=== PATIENT | female | born 1975 | race Caucasian/White ===

== ENCOUNTER 2017-05-10 14:40 | Observation (INO) | payer OTHER ==
[~2017-05-10] VITALS: Ht 165.1 cm; Wt 71.1 kg
[~2017-05-10 14:40] MED LIST: PROM25TA10 PO
[2017-05-10 15:00] VITALS: BP 113/70; PULSE 95; RESP 18; TEMP 97.4; O2SAT 99
[2017-05-10] MEDS ORDERED: ZOFR8TAB PO (15:19)
[2017-05-10] MEDS ORDERED: PANCCAP3 PO (15:20)
[2017-05-10] MEDS ORDERED: HYDR-755 PO (15:23)
[2017-05-10] MEDS ORDERED: MIRT45TA PO (15:24)
[2017-05-10] MEDS ORDERED: NEXI40CA PO (15:24)
[2017-05-10] MEDS ORDERED: ALBUAER3 INH (15:25)
[2017-05-10] MEDS ORDERED: SYMB80AE INH (15:26)
[2017-05-10] MEDS: MORPHINE SULFATE 2 MG/ML INJ IV PRN ×2 (18:23→23:35)
[2017-05-10] MEDS ORDERED: ALBUTEROL SULFATE 90 MCG/ACT HFA 8 GM INHALER INH PRN (19:00)
[2017-05-10] MEDS ORDERED: SODIUM CHLORIDE 0.9% FLUSH 10 ML FLUSH IV FLUSH PRN (19:00)
[2017-05-10] MEDS ORDERED: PROMETHAZINE HCL 25 MG TAB PO PRN (19:00)
[2017-05-10] MEDS: ONDANSETRON HCL 4 MG/2 ML VIAL IV PUSH PRN (20:14)
[2017-05-10] MEDS: LACTATED RINGER'S 1000 ML INJ 1,000 ML IV SCH (20:23)
[2017-05-10] MEDS: SODIUM CHLORIDE 0.9% FLUSH 10 ML FLUSH IV FLUSH SCH (20:26)
[2017-05-10] MEDS: CIPROFLOXACIN 400 MG PREMIX 200 ML IV SCH (20:26)
[2017-05-10] MEDS: metroNIDAZOLE 500 MG TAB PO SCH (20:29)
[2017-05-10] MEDS: BUDESONIDE-FORMOTEROL 80/4.5 MCG INHALER INH SCH (20:32)
[2017-05-10] MEDS: HEPARIN SODIUM - SQ 10,000 UNITS/ML VIAL SQ SCH (20:32)
[2017-05-10] MEDS ORDERED: MIRTAZAPINE 15 MG TAB PO SCH (21:00)
[2017-05-10] MEDS ORDERED: HYDROmorphone HCL PF 1 MG/ML VIAL IV PUSH ONE (21:00)
[2017-05-10 21:13] VITALS: BP 154/94; PULSE 84; RESP 20; TEMP 96.9; O2SAT 98
[2017-05-11 01:00] VITALS: BP 111/75; PULSE 85; RESP 16; TEMP 97.2; O2SAT 96
[2017-05-11] MEDS: MORPHINE SULFATE 2 MG/ML INJ IV PRN ×2 (04:09→08:37)
[2017-05-11] MEDS: ONDANSETRON HCL 4 MG/2 ML VIAL IV PUSH PRN ×2 (04:10→08:36)
[2017-05-11] MEDS: metroNIDAZOLE 500 MG TAB PO SCH (05:33)
[2017-05-11] MEDS: LACTATED RINGER'S 1000 ML INJ 1,000 ML IV SCH (05:33)
[2017-05-11] MEDS: HEPARIN SODIUM - SQ 10,000 UNITS/ML VIAL SQ SCH (05:33)
[2017-05-11 07:41] LABS: CHLORIDE 106 MEQ/L (98-107); SODIUM (NA) 139 MEQ/L (136-145)
[2017-05-11 07:45] LABS: ALBUMIN 3.1 GM/DL (3.4-5.0); BICARBONATE 25.5 MEQ/L (21.0-32.0); BLOOD UREA NITROGEN 13 MG/DL (7-18); GLUCOSE,RANDOM 86 MG/DL (74-106)
[2017-05-11 07:48] LABS: ALT (GPT) 13 U/L (10-53); AST (GOT) 15 U/L (15-37); CREATININE 0.61 MG/DL (0.50-1.00); GLOMERULAR FILTRATION RATE 109 ML/MIN (>89)
[2017-05-11 07:50] LABS: TOTAL BILIRUBIN ADULT 0.7 MG/DL (0.2-1.0); TOTAL PROTEIN 6.4 GM/DL (6.4-8.2)
[2017-05-11 07:51] LABS: ALKALINE PHOSPHATASE 53 U/L (45-117)
[2017-05-11 08:00] VITALS: BP 113/76; PULSE 80; RESP 18; TEMP 98.3; O2SAT 95
[2017-05-11 08:22] LABS: AUTOMATED NEUTROPHIL # 3.8 TH/MM3 (1.8-7.7); BASOPHIL # 0.1 TH/MM3 (0-0.2); BASOPHIL % 0.7 % (0.0-2.0); EOSINOPHIL # 0.1 TH/MM3 (0-0.4); EOSINOPHIL % 1.5 % (0.0-4.0); HEMATOCRIT 37.3 % (35.0-46.0); HEMOGLOBIN 12.1 GM/DL (11.6-15.3); LYMPH % 40.5 % (9.0-44.0); LYMPHOCYTE # 3.1 TH/MM3 (1.0-4.8); MEAN CELL VOLUME 88.1 FL (80.0-100.0); MEAN CORPUSCULAR HEMOGLOBIN 28.7 PG (27.0-34.0); MEAN CORPUSCULAR HGB CONC 32.6 % (32.0-36.0); MEAN PLATELET VOLUME 8.3 FL (7.0-11.0); MONO % 7.5 % (0.0-8.0); MONOCYTE # 0.6 TH/MM3 (0-0.9); NEUT % 49.8 % (16.0-70.0); PLATELET COUNT 314 TH/MM3 (150-450); RED BLOOD COUNT 4.23 MIL/MM3 (4.00-5.30); RED CELL DISTRIBUTION WIDTH 13.7 % (11.6-17.2); WHITE BLOOD COUNT 7.7 TH/MM3 (4.0-11.0)
[2017-05-11] MEDS: CIPROFLOXACIN 400 MG PREMIX 200 ML IV SCH (08:35)
[2017-05-11] MEDS: hydrOXYzine HCL 10 MG TAB PO SCH ×2 (08:37→13:00)
[2017-05-11] MEDS ORDERED: PANTOPRAZOLE SOD 40 MG DELAYED RELEASE TAB PO SCH (09:00)
[2017-05-11] MEDS: LIPASE/PROTEASE/AMYLASE (12,000/38,000/60,000) CAP PO SCH ×2 (09:30→13:10)
[2017-05-11] MEDS ORDERED: PNEUMOCOCCAL POLYVALENT INJ 25 MCG/0.5 ML SYR IM ONE (10:00)
[2017-05-11] MEDS ORDERED: INFLUENZA VIRUS VACCINE (QUADRIVALENT) 0.5 ML SYR IM ONE (10:00)
[2017-05-11] MEDS ORDERED: LORazepam 2 MG/ML VIAL IV PUSH ONE (10:30)
[2017-05-11] MEDS ORDERED: HYDROmorphone HCL PF 1 MG/ML VIAL IV PUSH ONE (10:30)
[2017-05-11] MEDS: BUDESONIDE-FORMOTEROL 80/4.5 MCG INHALER INH SCH (10:35)
[2017-05-11] MEDS: SODIUM CHLORIDE 0.9% FLUSH 10 ML FLUSH IV FLUSH SCH (10:38)
[2017-05-11 12:00] VITALS: BP 145/98; PULSE 79; RESP 18; TEMP 95.9; O2SAT 100
[2017-05-11] MEDS ORDERED: PROCHLORPERAZINE INJ 10 MG/2 ML VIAL IV PUSH ONE (12:45)
[2017-05-11] MEDS ORDERED: CIPR500T2 PO (13:00)
[2017-05-11] MEDS ORDERED: METR1TAB76 PO (13:00)
[2017-05-11] MEDS ORDERED: HYDR-3516 PO (13:00)
--- NOTE | 2017-05-11 13:00 | HHI.DCPOC ---
Discharge Care Plan Diagnosis: (1) Diverticulitis (2) Colitis Goals to Promote Your Health * To prevent worsening of your condition and complications * To maintain your health at the optimal level Directions to Meet Your Goals Take your medications as prescribed Follow your dietary instruction Follow activity as directed Keep your appointments as scheduled Take your immunizations and boosters as scheduled If your symptoms worsen call your PCP, if no PCP go to Urgent Care Center or Emergency Room Smoking is Dangerous to Your Health. Avoid second hand smoke Call the 24-hour hour crisis hotline for domestic abuse at Joyce Qiu MD May 11, 2017 13:00
--- NOTE | 2017-05-11 13:06 | HHI.HP ---
[facility] Sharon Bonner MD Admission Diagnosis Diagnoses: Chief Complaint: Abdominal pain Travel History International Travel<30 Days: No Contact w/Intl Traveler <30 Da: No Traveled to Known Affected Are: No History of Present Illness This is a 42-year-old female with a history of chronic pancreatitis. She presented with at least one day of lower abdominal pain which was severe and associated with nausea and vomiting and diarrhea. She thought it was pancreatitis but noted that the pain was quite severe. She came to the emergency room where she was found have leukocytosis. CT of abdomen pelvis that showed some colitis. Patient has not been febrile and was started on empiric antibiotics. Overnight her leukocytosis improved as well as her pain. She's been tolerating her diet and is suitable for discharge. Review of Systems Constitutional: DENIES: Diaphoretic episodes, Fatigue, Fever, Weight gain, Weight loss, Chills, Dizziness, Change in appetite, Night Sweats Endocrine: DENIES: Abnorml menstrual pattern, Heat/cold intolerance, Polydipsia , Polyuria, Polyphagia Eyes: DENIES: Blurred vision, Diplopia, Eye inflammation, Eye pain, Vision loss , Photosensitivity, Double Vision Ears, nose, mouth, throat: DENIES: Tinnitus, Hearing loss, Vertigo, Nasal discharge, Oral lesions, Throat pain, Hoarseness, Ear Pain, Running Nose, Epistaxis, Sinus Pain, Toothache, Odynophagia Respiratory: DENIES: Apneas, Cough, Snoring, Wheezing, Hemoptysis, Sputum production, Shortness of breath Cardiovascular: DENIES: Chest pain, Palpitations, Syncope, Dyspnea on Exertion , PND, Lower Extremity Edema, Orthopnea, Claudication Gastrointestinal: COMPLAINS OF: Abdominal pain, DENIES: Black stools, Bloody stools, Constipation, Diarrhea, Nausea, Vomiting, Difficulty Swallowing, Anorexia Genitourinary: DENIES: Abnormal vaginal bleeding, Dysmenorrhea, Dyspareunia, Sexual dysfunction, Urinary frequency, Urinary incontinence, Urgency, Hematuria , Dysuria, Nocturia, Vaginal discharge Except as stated in HPI: all other systems reviewed are Neg Past Family Social History Past Medical History Chronic pancreatitis COPD Anxiety disorder Past Surgical History Reviewed and patient denies Reported Medications Reviewed in the EMR Allergies: Coded Allergies: No Known Allergies (Verified Allergy, Unknown, 05/10/17) Active Ordered Medications Reviewed in the EMR Family History Hypertension Social History Quit alcohol (former alcoholic) Tobacco daily Divorcee Physical Exam Vital Signs Vital Signs Date Time Temp Pulse Resp B/P (MAP) Pulse Ox O2 Delivery O2 Flow Rate FiO2 05/11/17 12:00 95.9 79 18 145/98 (114) 100 05/11/17 08:42 20 05/11/17 08:00 98.3 80 18 113/76 (88) 95 05/11/17 01:00 97.2 85 16 111/75 (87) 96 05/10/17 21:13 96.9 84 20 154/94 (114) 98 05/10/17 15:00 97.4 95 18 113/70 (84) 99 Physical Exam GENERAL: This is a well-nourished, well-developed patient, hyperventilating and crying SKIN: No rashes, ecchymoses or lesions. Cool and dry. HEAD: Atraumatic. Normocephalic. No temporal or scalp tenderness. EYES: Pupils equal round and reactive. Extraocular motions intact. No scleral icterus. No injection or drainage. ENT: Nose without bleeding, purulent drainage or septal hematoma. Throat without erythema, tonsillar hypertrophy or exudate. Uvula midline. Airway patent. NECK: Trachea midline. No JVD or lymphadenopathy. Supple, nontender, no meningeal signs. CARDIOVASCULAR: Regular rate and rhythm without murmurs, gallops, or rubs. RESPIRATORY: Clear to auscultation. Breath sounds equal bilaterally. No wheezes , rales, or rhonchi. GASTROINTESTINAL: Abdomen soft, non-tender, nondistended. No hepato-splenomegaly , or palpable masses. No guarding. MUSCULOSKELETAL: Extremities without clubbing, cyanosis, or edema. No joint tenderness, effusion, or edema noted. No calf tenderness. Negative Homans sign bilaterally. NEUROLOGICAL: Awake and alert. Cranial nerves II through XII intact. Motor and sensory grossly within normal limits. Five out of 5 muscle strength in all muscle groups. Normal speech. Laboratory Laboratory Tests Test 05/11/17 06:55 White Blood Count 7.7 Red Blood Count 4.23 Hemoglobin 12.1 Hematocrit 37.3 Mean Corpuscular Volume 88.1 Mean Corpuscular Hemoglobin 28.7 Mean Corpuscular Hemoglobin Concent 32.6 Red Cell Distribution Width 13.7 Platelet Count 314 Mean Platelet Volume 8.3 Neutrophils (%) (Auto) 49.8 Lymphocytes (%) (Auto) 40.5 Monocytes (%) (Auto) 7.5 Eosinophils (%) (Auto) 1.5 Basophils (%) (Auto) 0.7 Neutrophils # (Auto) 3.8 Lymphocytes # (Auto) 3.1 Monocytes # (Auto) 0.6 Eosinophils # (Auto) 0.1 Basophils # (Auto) 0.1 CBC Comment DIFF FINAL Differential Comment Blood Urea Nitrogen 13 Creatinine 0.61 Random Glucose 86 Total Protein 6.4 Albumin 3.1 Calcium Level 8.0 Alkaline Phosphatase 53 Aspartate Amino Transf (AST/SGOT) 15 Alanine Aminotransferase (ALT/SGPT) 13 Total Bilirubin 0.7 Sodium Level 139 Potassium Level 3.6 Chloride Level 106 Carbon Dioxide Level 25.5 Anion Gap 8 Estimat Glomerular Filtration Rate 109 Result Diagram: 05/11/17 0655 05/11/[address] abdomen pelvis on 05/10 shows colitis without evidence of obstruction Course Transferred from [facility] VTE Risk Assessment Caprini VTE Risk Assessment: No/Low Risk (score <= 1) Caprini Risk Assessment Model Point Value = 1 Point Value = 2 Point Value = 3 Point Value = 5 Age 41-60 Minor surgery BMI > 25 kg/m2 Swollen legs Varicose veins or History of unexplained or recurrent spontaneous Oral contraceptives or hormone replacement Sepsis (< 1 month) Serious lung disease, including pneumonia (< 1 month) Abnormal pulmonary function Acute myocardial infarction Congestive heart failure (< 1 month) History of inflammatory bowel disease Medical patient at bed rest Age 61-74 Arthroscopic surgery Major open surgery (> 45 min) Laparoscopic surgery (> 45 min) Malignancy Confined to bed (> 72 hours) Immobilizing plaster cast Central venous access Age >= 75 History of VTE Family history of VTE Factor V Leiden Prothrombin [id number] Lupus anticoagulant Anticardiolipin antibodies Elevated serum homocysteine Heparin-induced thrombocytopenia Other congenital or acquired thrombophilia Stroke (< 1 month) Elective arthroplasty Hip, pelvis, or leg fracture Acute spinal cord injury (< 1 month) Prophylaxis Regimen Total Risk Factor Score Risk Level Prophylaxis Regimen 0-1 Low Early ambulation 2 Moderate Order ONE of the following: *Sequential Compression Device (SCD) *Heparin 5000 units SQ BID 3-4 Higher Order ONE of the following medications: *Heparin 5000 units SQ TID *Enoxaparin/Lovenox 40 mg SQ daily (WT < 150 kg, CrCl > 30 mL/min) *Enoxaparin/Lovenox 30 mg SQ daily (WT < 150 kg, CrCl > 10-29 mL/min) *Enoxaparin/Lovenox 30 mg SQ BID (WT < 150 kg, CrCl > 30 mL/min) AND/OR *Sequential Compression Device (SCD) 5 or more Highest Order ONE of the following medications: *Heparin 5000 units SQ TID (Preferred with Epidurals) *Enoxaparin/Lovenox 40 mg SQ daily (WT < 150 kg, CrCl > 30 mL/min) *Enoxaparin/Lovenox 30 mg SQ daily (WT < 150 kg, CrCl > 10-29 mL/min) *Enoxaparin/Lovenox 30 mg SQ BID (WT < 150 kg, CrCl > 30 mL/min) AND *Sequential Compression Device (SCD) Assessment and Plan Problem List: (1) Colitis ICD Code: K52.9 - Noninfective gastroenteritis and colitis, unspecified Plan: Patient has responded clinically to antibiotics. 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
== END 2017-05-11 14:45 | disposition home or self-care (01) ==
LOC: PHEDDLT 14:40 → PHEDA 14:41 → UNDOADMOB 14:41 → PH3B 14:41
PROVIDERS: ADMIT Hospitalist; ATTEND Hospitalist
DX: K52.9 Noninfective gastroenteritis and colitis, unspecified (principal); K57.92 Diverticulitis of intestine, part unspecified, without perforation or abscess without bleeding; K86.1 Other chronic pancreatitis; J44.9 Chronic obstructive pulmonary disease, unspecified; F17.200 Nicotine dependence, unspecified, uncomplicated; Z23 Encounter for immunization
CPT/HCPCS: 74177; 80053; 81001; 83605; 83690; 84702; 85025; 87086; 90471; 90686; 90732; 96361; 96365; 96366; 96374; 96375; 96376; 99285; G0378; J0744; J0780; J1170; J1644; J2060; J2270; J2405; J7030; J7120; Q0169; Q9967; G0008; G0009; Q2038